=== PATIENT | male | born 1985 | race African-American/Black ===

== ENCOUNTER 2023-01-28 15:39 | Emergency (ER) | payer MEDICARE, MEDICAID ==
[~2023-01-28] VITALS: Ht 172.7 cm; Wt 55.8 kg
[2023-01-28 16:15] VITALS: TEMP 97.9; O2SAT 100
[2023-01-28] MEDS ORDERED: IBUPROFEN 600MG TABLET PO ONE (19:45)
[2023-01-28] MEDS ORDERED: IBUP-2029 MT (21:06)
[2023-01-28 21:45] VITALS: BP 114/66; PULSE 100; RESP 18
[2023-01-28] MEDS ORDERED: HYDROCODONE/ACETAMINOPHEN 5/325MG TABLET PO ONE (21:45)
== END 2023-01-28 22:34 | disposition home or self-care (01) ==
LOC: ER 15:39
DX: S52.201A Unspecified fracture of shaft of right ulna, initial encounter for closed fracture (principal); Y08.89XA Assault by other specified means, initial encounter; Y93.89 Activity, other specified; Y92.89 Other specified places as the place of occurrence of the external cause; Y99.8 Other external cause status
CPT/HCPCS: 29125; 73090; 73590; 99284; A4565